=== PATIENT | male | born 1965 | race Hispanic/Latino ===

== ENCOUNTER 2020-04-20 15:57 | Observation (INO) | payer OTHER ==
[2020-04-13 11:22] LABS: Hematocrit 49.8 % (35.5-45.6); Hemoglobin 16.6 gm/dl (11.8-15.2); Mean Corpuscular HGB Conc 33 % (32-34); Mean Corpuscular Volume 83 fl (84-94); Platelet Count 158 K/mm3 (140-440); Red Cell Distribution Width 14.2 % (13.2-15.2)
[2020-04-13 11:47] LABS: Alanine Aminotransferase 15 units/L (7-56); Albumin 4.4 g/dL (3.9-5); BUN/Creatinine Ratio 14; Blood Urea Nitrogen 17 mg/dL (9-20); Calcium 9.4 mg/dL (8.4-10.2); Hemolysis Index 7
--- NOTE | 2020-04-13 14:47 | Anesthesia Consultation ---
Anesthesia Consult and Med Hx Date of service: 04/20/20 - Airway Anesthetic Teeth Evaluation: Dentures (upper and lower) ROM Head & Neck: Adequate Mental/Hyoid Distance: Adequate Mallampati Class: Class III Intubation Access Assessment: Possibly Difficult - Pulmonary Exam CTA: Yes - Cardiac Exam Cardiac Exam: RRR - Pre-Operative Health Status ASA Pre-Surgery Classification: ASA3 Proposed Anesthetic Plan: General Nerve Block: TAP - Pulmonary Hx Smoking: Yes (long hx; quit 2013) Hx Asthma: Yes SOB: Yes (chronic HONG improved since recent weight loss) COPD: Yes Home Oxygen Therapy: Yes (2L prn during the day, 3L nocturnal) Hx Sleep Apnea: Yes (severe SHELIA compliant with CPAP) - Cardiovascular System Hx Hypertension: Yes Hx Heart Attack/AMI: No Hx Percutaneous Transluminal Coronary Angioplasty (PTCA): No Hx Cardia Arrhythmia: No - Central Nervous System CVA: No Hx Back Pain: Yes (NECK PAIN) Hx Psychiatric Problems: Yes (depression) - Gastrointestinal Hx Gastroesophageal Reflux Disease: Yes (symptoms usually at night but occas ionally also when NPO) - Endocrine Hx Renal Disease: No Hx Liver Disease: No (hx HCV s/p treatment) Hx Non-Insulin Dependent Diabetes: Yes (off meds since recent weight loss) Hx Thyroid Disease: No - Hematic Hx Anemia: Yes - Other Systems Hx Substance Use: Yes (hx opioid abuse; sober x6yrs) Hx Obesity: Yes (BMI 33) - Additional Comments Anesthesia Medical History Comments: Pulmonology preop eval on chart reviewed. Per pulmonology, patient has severe restrictive lung disease with reduced diffusion capcity and may be low to intermediate risk for postop pulmonary complications. Disussed with patient the risks of periop pulmonary complication up to and including the need for post op mechanical ventilation given his respiratory morbidity. He verbalized understanding and gave consent for anesthesia.
--- NOTE | 2020-04-20 09:51 | Anesthesia Day of Surgery ---
Anesthesia Day of Surgery - Day of Surgery Patient Examined: Yes Patient H&P Reviewed: Yes Patient is NPO: Yes
[2020-04-20] MEDS: CELECOXIB 200 MG CAP PO NR ×2 (10:00→10:05)
[2020-04-20] MEDS: MIDAZOLAM 2 MG/2 ML INJ IV NR ×2 (10:18→10:23)
--- NOTE | 2020-04-20 15:02 | Short Stay Summary ---
Short Stay Documentation Date of service: 04/20/20 - History Principal diagnosis: incarcerated incisional hernia, L inguinal hernia H&P: obtained from office - Allergies and Medications Current Medications: Allergies No Known Allergies Allergy (Verified 04/13/20 17:41) Home Medications Medication Instructions Recorded Confirmed Last Taken Type B12 Active 1,000 mcg PO DAILY 04/12/20 04/12/20 Unknown History Budesonide-Formoterol 160-4.5 2 puff INHALATION DAILY 04/12/20 04/20/20 04/19/20 09:00 History Cholecalciferol (Vitamin D3) 2,000 units PO DAILY 04/12/20 04/20/20 04/19/20 09:00 History Cyclobenzaprine HCl 10 mg PO BID PRN 04/12/20 04/12/20 Unknown History Famotidine [Acid-Pep] 20 mg PO BID 04/12/20 04/20/20 04/19/20 19:00 History Fish Oil 1 cap PO DAILY 04/12/20 04/20/20 04/19/20 09:00 History Furosemide [Lasix TAB] 40 mg PO DAILY 04/12/20 04/20/20 04/19/20 09:00 History Gabapentin 100 mg PO TID 04/12/20 04/20/20 04/19/20 20:00 History Ipratropium/Albuter (Nf) 90 mcg INHALATION DAILY 04/12/20 04/20/20 04/19/20 09:00 History Losartan 100 mg PO DAILY 04/12/20 04/20/20 04/19/20 09:00 History Magnesium 500 mg PO DAILY 04/12/20 04/20/20 04/19/20 09:00 History Melatonin 30 mg PO HS 04/12/20 04/20/20 04/19/20 20:00 History Meloxicam 15 mg PO DAILY 04/12/20 04/20/20 04/19/20 09:00 History Polyethylene Glycol 3350 1 packet PO DAILY 04/12/20 04/20/20 04/19/20 09:00 History [place] Oil 1,000 mg Softgel 1 cap PO DAILY 04/12/20 04/20/20 04/19/20 09:00 History Tiotropium 5 mcg INHALATION DAILY 04/12/20 04/12/20 Unknown History Tramadol HCl 50 mg PO PRN PRN 04/12/20 04/20/20 04/20/20 07:00 History Albuterol Sulfate [Proventil Hfa] 2 puff IH PRN PRN 04/13/20 04/13/20 Unknown History Active Medications Acetaminophen (Acetaminophen 500 Mg Tab) 1,000 mg PO PREOP EDITH Stop: 04/20/20 21:00 Last Admin: 04/20/20 10:00 Dose: 1,000 mg Documented by: Famotidine (Famotidine 20 Mg/2 Ml Inj) 20 mg IV ONCE EDITH Stop: 04/20/20 21:00 Last Admin: 04/20/20 10:00 Dose: 20 mg Documented by: Fentanyl (Fentanyl 100 Mcg/2 Ml Inj) 100 mcg IV ONCE PRN PRN Reason: sedation for nerve block Stop: 04/20/20 21:00 Last Admin: 04/20/20 10:18 Dose: 100 mcg Documented by: Gabapentin (Gabapentin 300 Mg Cap) 300 mg PO PREOP NR Stop: 04/20/20 21:00 Last Admin: 04/20/20 10:00 Dose: 300 mg Documented by: Hydromorphone HCl (Hydromorphone 1 Mg/1 Ml Inj) 0.25 mg IV Q10MIN PRN PRN Reason: Pain, Moderate (4-6) Stop: 04/20/20 22:00 Hydromorphone HCl (Hydromorphone 1 Mg/1 Ml Inj) 0.5 mg IV Q10MIN PRN PRN Reason: Pain , Severe (7-10) Stop: 04/20/20 22:00 Lactated Ringer's (Lactated Ringers) 1,000 mls @ 100 mls/hr IV DIRECT EDITH Stop: 04/20/20 23:59 Last Admin: 04/20/20 10:00 Dose: 100 mls/hr Documented by: Cefazolin Sodium (Ancef/Sterile Water 2 Gm/20 Ml) 2 gm in 20 mls @ 80 mls/hr IV PREOP NR Stop: 04/20/20 20:00 Magnesium Oxide (Magnesium Oxide 400 Mg Tab) 400 mg PO PREOP EDITH Stop: 04/20/20 21:00 Last Admin: 04/20/20 10:00 Dose: 400 mg Documented by: Midazolam HCl (Midazolam 2 Mg/2 Ml Inj) 2 mg IV PREOP NR Stop: 04/20/20 21:00 Last Admin: 04/20/20 10:23 Dose: 2 mg Documented by: Ondansetron HCl (Ondansetron 4 Mg/2 Ml Inj) 4 mg IV ONCE PRN PRN Reason: Nausea And Vomiting Stop: 04/20/20 16:00 - Brief post op/procedure progress note Date of procedure: 04/20/20 Pre-op diagnosis: incarcerated incisional hernia, left inguinal hernia Post-op diagnosis: same Procedure: Robotic assisted laparoscopic lysis of adhesions, incisional hernia repair with mesh, L inguinal hernia repair with mesh Anesthesia: GETA, other (Tap Block) Findings: 1. A great deal of adhesions from ometum, small bowel, and colon to anterior abdominal wall 2. 2x2.5 cm paraumbilical incisional hernia containing incarcerated fat 3. Small indirect left inguinal hernia containing cord lipoma Surgeon: FRANCESCA GILLIAM Bike Designer: HADYEN LOVE Estimated blood loss: 50-100ml Pathology: none Condition: stable - Hospital course Hospital course: Patient admitted to hospital for observation due to his underlying pulmonary disease. He was observed in the PACU and brought to the floor in stable condition once criteria met. - Disposition Condition at discharge: Good Disposition: DC-01 TO HOME OR SELFCARE Short Stay Discharge Plan Follow up with: [facility] [Primary Care Provider] - 7 Days
--- NOTE | 2020-04-20 15:03 | Post Operative Note ---
Pre-op diagnosis: incarcerated incisional hernia, left inguinal hernia Post-op diagnosis: same Findings: 1. A great deal of adhesions from ometum, small bowel, and colon to anterior abdominal wall 2. 2x2.5 cm paraumbilical incisional hernia containing incarcerated fat 3. Small indirect left inguinal hernia containing cord lipoma Procedure: robotic assisted laparoscopic lysis of adhesions, left inguinal hernia repair with mesh, incisional hernia repair with mesh Anesthesia: GETA, other (TAP block) Surgeon: FRANCESCA GILLIAM Tennis Net Maker: HAYDEN LOVE Estimated blood loss: 50-100ml Pathology: none Condition: stable Disposition: PACU
[~2020-04-20 15:57] MED LIST: ACETAMINOPHEN 325 MG TAB PO PRN; ACETAMINOPHEN 500 MG TAB PO SCH; BUPIVACAINE-EPINEPHRINE/PF 0.25%-1:200,000 (30 ML) VIAL INFILTRATI ONE; CELECOXIB 200 MG CAP PO NR; FAMOTIDINE 20 MG/2 ML INJ IV SCH; GABAPENTIN 300 MG CAP PO NR; HYDROmorphone 1 MG/1 ML INJ IV PRN; HYDROmorphone 1 MG/1 ML INJ ONE; KETAMINE/STERILE WATER 50 MG/ML SYRINGE ONE; LACTATED RINGERS 1,000 ML IV SCH; LACTATED RINGERS 1,000 ML ONE; LIDOCAINE MPF (2%) 20 MG/1 ML VIAL 5 ML ONE; MAGNESIUM OXIDE 400 MG TAB PO SCH; NALOXONE 0.4 MG/1 ML INJ IV PRN; ONDANSETRON 4 MG/2 ML INJ IV PRN; ROCURONIUM 50 MG/5 ML INJ IV ONE; SUGAMMADEX SODIUM 200 MG/2 ML VIAL IV ONE; WATER FOR IRRIG STERILE 1,500 ML BOTTLE IR ONE; ceFAZolin/Water 2 GM/20 ML 2 GM/20 ML SYRINGE IV NR; fentaNYL 100 MCG/2 ML INJ IV PRN; oxyCODONE /ACETAMINOPHEN 5-325MG TAB PO PRN; propofoL 200 MG/20 ML VIAL IV ONE
--- NOTE | 2020-04-20 16:12 | Post Anesthesia Evaluation ---
- Post Anesthesia Evaluation Patient Participated: Yes Airway Patent: Yes Stable Respiratory Function: Yes Nausea/Vomiting: No Temp > 96.8F: Yes Pain Manageable: Yes Adequeate Hydration: Yes Anesthesia Complications: No Block Receding Appropriately: Yes Patient on Ventilator: No
--- NOTE | 2020-04-20 16:19 | Operative Report ---
Operative Report Operative Report: Date: 04/20/20 15:02 Pre-op diagnosis: incarcerated incisional hernia, left inguinal hernia Post-op diagnosis: same Findings: 1. A great deal of adhesions from ometum, small bowel, and colon to anterior abdominal wall 2. 2x2.5 cm paraumbilical incisional hernia containing incarcerated fat 3. Small indirect left inguinal hernia containing cord lipoma Procedure: robotic assisted laparoscopic lysis of adhesions, left inguinal hernia repair with mesh, incisional hernia repair with mesh Anesthesia: GETA, other (TAP block) Surgeon: FRANCESCA GILLIAM Locker Operator: HAYDEN LOVE Estimated blood loss: 50-100ml Urine output: 200cc Pathology: none Condition: stable Disposition: PACU HPI and indication: 54 yo M with hx of exalp, Mckeon procedure and subsequent reversal in the 1980s presented to surgery clinic for evaluation of hernia. Patient was being worked up at the CT for incisional hernia which was painful with incarcerated fat. CT scan A/P showed 2.1 cm paraumbilical ventral hernia and small fat containing L inguinal hernia. Physical exam revealed the same. Pt had lost >40 lbs in preparation for surgery. He was seen by pulmonology and preop risk assessment performed. It was recommended that the hernias be repaired. All risk, benefits, alternatives surgery discussed with patient questions answered. It was recommended that the hernia be repaired robotically. Alternatives such as open versus laparoscopic repair were also discussed. The patient was in agreement and consent obtained. Due to patient's pulmonary history, it was also recommended that patient be admitted post op for observation. Procedure in detail: The patient was identified in the preoperative area and taken back to the operating room and placed on the operating room table in supine position. After anesthesia was induced, both arms were tucked with all bony prominences padded appropriately. Blackwell catheter was placed sterilely by the circulating nurse. The abdomen was then prepped and draped in usual sterile fashion and a timeout was performed. The patient had a TAP block performed by anesthesia preoperatively. A jessica incision was made in the left upper quadrant at Alcala's point through which a Veress needle was inserted. The Veress needle position was confirmed using the saline drop test and the abdomen insufflated to 15 mmHg without incident. A 5 mm incision was made in the right upper quadrant through which a 5 mm Optiview trocar was placed under direct visualization. The abdomen was inspected and there was no underlying injury to any of the abdominal structures. There was a large amount of adhesions to the abdominal wall obscuring most of the abdominal wall in the midline, left hemiabdomen, and pelvis. The abdominal wall in the right hemiabdomen was without adhesions and an additional 8 mm RLQ robotic trocal and 12mm right lateral balloon trocar were placed under direct visualization. Extensive lysis of adhesions was performed laparoscopically using the ligasure. This portion of the lysis of adhesions took approximately 45 minutes. Adhesions from the omentum and bowel were dissected very meticulously until the veress needle was identified. The tip was seen abutting fat and no injury to the bowel was seen. The veress needle was removed. The 5 mm right upper quadrant trocar was replaced with an 8 mm robotic trocar under direct visualization. The robot was then docked to further facilitate lysis of adhesions . A fenestrated bipolar was placed in arm #2 and a monopolar scissor in arm #1. The surgeon was then transferred to the console. I continued dissecting these adhesions in order to get better visualization of the ventral hernia. Dissection was carried out very carefully using a combination of blunt dissection and electrocautery. During the dissection the hernia became more apparent. There was a moderate amount of incarcerated fat in the hernia defect which was carefully reduced. I continued the lysis of adhesions to the left hemiabdomen in order to facilitate placement of mesh and to access the left inguinal hernia. This took another 40 minutes. The hernia defect measured 2x2.5cm. No other defects were seen along the midline incision. At this point it was decided to first fix the left inguinal hernia. The robot was undocked and an additional 12mm balloon trocar was placed in the upper midline and 8 mm robotic trocar in the left upper quadrant under direct visualization. First, I created a preperitoneal flap. The peritoneum was scored approximately 5 to 6 cm from the hernia defect. The peritoneum was then incised from the midline to the ASIS. The preperitoneal flap was then developed in an avascular plane. I first defined the medial margin by dissecting to the pubic tubercle. The pubic tubercle was cleared of overlying fatty tissue using blunt dissection. I then created the lateral margin in a similar fashion. Great care was taken to avoid injury to any nerves. I then started to reduce the hernia sac. The hernia sac was grasped and retracted laterally and cremasteric muscles were divided in a very careful fashion. During the dissection, the cord structures were identified and protected. The cord structures and vas deferens were visualized throughout the entire dissection. There was a cord lipoma associated with the hernia which was reduced. Once the hernia sac was completely excised, the peritoneal flap was checked for hemostasis. Any additional cremasteric fibers that were were tenting up the peritoneum were divided. Hemostasis was carefully ensured. A medium sized Bard 3D max left-sided mesh was used to repair the defect. This was positioned in the preperitoneal flap in the usual fashion. The medial aspect using interrupted 2-0 Vicryl stitch. The lateral aspect was sutured to the anterior abdominal wall using a 2-0 Vicryl interrupted stitch. Mesh was to lay flat and cover the defect adequately. The abdominal pressure was decreased to 8 mmHg and the peritoneum was then reapproximated using 3-0 VLoc running stitch. Defect in the peritoneum was repaired using a running 3-0 VLoc stitch. The entirety of the mesh was covered by peritoneum and laid flat in the preperitoneal space. The robot was then undocked and redocked to repair the incisional hernia. An 11.[address] composite mesh was chosen to repair the hernia. The hernia defect was closed using an 0 VLoc running stitch. The mesh was positioned in the center of the defect. The uncoated side was placed against the abdominal wall. The mesh was sutured into place circumferentially using a running 2 0 V loc stitch. The mesh was seen to lay flat against the abdominal wall. All sharp material was removed from the abdomen under direct visualization. The robot was then undocked and the surgeon scrubbed back in. The remainder of the case was performed laparoscopically. 2 raytecs which were placed in the abdomen at the beginning of the case were removed. The ometum was irrigated and hemostasis carefully ensured. Raudel powder was sprayed over the omentum to further help with hemostasis. The fascia of the 12mm ports and 8mm RLQ port was closed with interrupted 0-vicryl stitch es. The remaining ports were removed under direct visualization and the abdomen desufflated. The skin incisions were closed with 4-0 Monocryl subcuticular stitches and skin glue. A 4 x 4 gauze was balled up and placed at the umbilicus and secured with a Tegaderm. At the end of the case, all sponge, instrument, sharp counts were correct 2. An abdominal binder was applied to the patient. Blackwell catheter was removed. The patient was awoken from anesthesia, extubated and taken to PACU in stable condition.
[2020-04-20] MEDS: D5W/0.45% NACL 1,000 ML IV SCH (17:42)
[2020-04-20] MEDS: HYDROmorphone 1 MG/1 ML INJ IV PRN ×2 (17:45→22:07)
[2020-04-20] MEDS ORDERED: BUDESONIDE 0.25 MG/2 ML NEBU IH SCH (20:00)
[2020-04-20] MEDS ORDERED: IPRATROPIUM/ALBUTEROL SULFATE 3 ML AMPUL.NEB IH SCH (20:00)
[2020-04-20] MEDS ORDERED: MELATONIN 5 MG TAB PO SCH (22:00)
[2020-04-20] MEDS: CELECOXIB 200 MG CAP PO SCH (22:09)
[2020-04-20] MEDS: GABAPENTIN 300 MG CAP PO SCH (22:09)
[2020-04-20] MEDS: HEPARIN 5,000 UNIT/1 ML VIAL SUB-Q SCH (22:10)
[2020-04-21] MEDS: HYDROmorphone 1 MG/1 ML INJ IV PRN ×3 (02:16→11:54)
[2020-04-21] MEDS: D5W/0.45% NACL 1,000 ML IV SCH (05:37)
[2020-04-21] MEDS: HEPARIN 5,000 UNIT/1 ML VIAL SUB-Q SCH (05:39)
[2020-04-21 06:18] LABS: Basophils % (Auto) 0.5 % (0.0-1.8); Hematocrit 42.2 % (35.5-45.6); Hemoglobin 14.1 gm/dl (11.8-15.2); Lymphocytes # (Auto) 1.1 K/mm3 (1.2-5.4); Lymphocytes % (Auto) 10.4 % (13.4-35.0); Mean Corpuscular HGB Conc 34 % (32-34); Mean Corpuscular Volume 83 fl (84-94); Monocytes # (Auto) 0.6 K/mm3 (0.0-0.8); Monocytes % (Auto) 5.8 % (0.0-7.3); Platelet Count 161 K/mm3 (140-440); Red Blood Count 5.07 M/mm3 (3.65-5.03); Red Cell Distribution Width 14.2 % (13.2-15.2)
[2020-04-21 06:33] LABS: BUN/Creatinine Ratio 17; Blood Urea Nitrogen 15 mg/dL (9-20); Calcium 8.5 mg/dL (8.4-10.2); Hemolysis Index 5
[2020-04-21] MEDS ORDERED: TIOTROPIUM 18 MCG CAP INHALATION IH SCH (09:00)
[2020-04-21] MEDS ORDERED: LOSARTAN 50 MG TAB PO SCH (10:00)
[2020-04-21] MEDS ORDERED: FUROSEMIDE 40 MG TAB PO SCH (10:00)
[2020-04-21] MEDS ORDERED: FAMOTIDINE 20 MG TAB PO SCH (10:00)
[2020-04-21 11:49] VITALS: BP 142/74
[2020-04-21] MEDS: CELECOXIB 200 MG CAP PO SCH (11:54)
[2020-04-21] MEDS: GABAPENTIN 300 MG CAP PO SCH (11:55)
--- NOTE | 2020-04-21 12:35 | Discharge Summary ---
Providers - Providers Date of Admission: 04/20/20 15:58 Date of discharge: 04/21/20 Attending physician: FRANCESCA GILLIAM DO Primary care physician: [facility] Hospitalization Reason for admission: 04/20/20 Condition: Good Procedures: robotic assisted EVETTE, repair incisional and L inguinal hernia with mesh Hospital course: 54 yo M who underwent elective robotic assisted lap lysis of adhesions, repair of incarcerated incisional hernia with mesh and left inguinal hernia repair with mesh on 04/20/20. Patient was admitted for observation due to his underlying severe pulmonary disease. His post op course was uncomplicated. He was weaned off oxygen and was reaching 2000cc on IS. Pain well controlled. He was ambulati ng on his own and urinating. No f/c. Tolerating a diet. Disposition: - TO HOME OR SELFCARE Time spent for discharge: 30 mins Core Measure Documentation - Palliative Care Palliative Care/ Comfort Measures: Not Applicable - Core Measures Any of the following diagnoses?: none Exam - Physical Exam Narrative exam: Gen: AAOx3. NAD CV: s1, S2+ Resp: even and unlabored Abd: soft, NT, ND. incisions c/d/i with mild ecchymosis. Umbilical dressing c/d/i. Abdominal binder in place Ext: no c/c/e - Constitutional Vitals: Temp Pulse Resp BP Pulse Ox 98.1 F 88 18 142/74 97 04/21/20 11:24 04/21/20 11:24 04/21/20 11:24 04/21/20 11:24 04/21/20 12:18 Plan Activity: other (no heavy lifting more than 15 lbs for next 6 weeks.) Diet: regular Wound: open to air, per your surgeon's advice Additional Instructions: Patient discharge instructions. You have undergone surgery to fix an abdominal wall and left groin hernia. You will feel sore for the next few days. Bruising around your incision could be normal. Diet: ?Regular diet foods that are soft and easy to digest. Try to avoid fatty or fried foods right away. Make sure to drink plenty of water and stay hydrated. Activity: You are encouraged to walk and may go up and down the steps. No heavy lifting of more than 15 lbs for the next [address] if you are taking prescription, narcotic pain medications. Wear abdominal bind er at all times except during shower and may remove while sleeping. Showering: You may shower. Pat your incision dry and do not scrub or rub. Do not get into a hot tub, pool, or bathtub where your incisions will be under water. Wound care instructions: Keep incisions clean and dry. There is skin glue on your incisions which will fall off on its own. Pain medications: You are encouraged to use over the counter pain medications like Tylenol or Ibuprofen as directed on the bottle for pain control. If your pain is not controlled with these medications, you have been given a prescription for Percocet medications. Please use as directed and if you do not finish the prescription pain medications, please return to your pharmacy. Continue taking your Gabapentin and Meloxicam as prescribed. Reasons to call Surgeons office: If you have fevers >100.4. If you are having increasing abdominal pain or vomiting. If you have pain that is not controlled with prescription pain medications. If you have drainage if pus or redness around the incisions. When to come back to see your Surgeon: Please call the office ([phone]) to make an appointment to see the surgeon in 2 weeks. Call if you have any questions. [facility]. [facility] Ground floor Follow up with: [facility] [Primary Care Provider] - 7 Days FRANCESCA GILLIAM DO [Staff Physician] - 10 Days Prescriptions: oxyCODONE /ACETAMINOPHEN [Percocet 5/325 mg] 2 tab PO Q6HR PRN #40 tablet PRN Reason: Pain, Moderate (4-6)
== END 2020-04-21 16:22 | disposition home or self-care (01) ==
LOC: OR 15:57 → 3B-SURG 15:58
PROVIDERS: ADMIT Surgery; ATTEND Surgery
DX: Z01.812 Encounter for preprocedural laboratory examination (principal); K43.2 Incisional hernia without obstruction or gangrene; Z20.828 Contact with and (suspected) exposure to other viral communicable diseases; K40.90 Unilateral inguinal hernia, without obstruction or gangrene, not specified as recurrent; I10 Essential (primary) hypertension; K21.9 Gastro-esophageal reflux disease without esophagitis; E11.9 Type 2 diabetes mellitus without complications; R06.00 Dyspnea, unspecified; G47.30 Sleep apnea, unspecified; F41.9 Anxiety disorder, unspecified; F32.9 Major depressive disorder, single episode, unspecified; R53.82 Chronic fatigue, unspecified; Z86.19 Personal history of other infectious and parasitic diseases; Z98.890 Other specified postprocedural states; Z79.899 Other long term (current) drug therapy
CPT/HCPCS: 36415; 49650; 49655; 64450; 80048; 80053; 82962; 85025; 85027; 96361; 96372; 96374; 96375; 96376; C1781; G0378; J0690; J1170; J1644; J2250; J2704; J3010; J3490; J7120; S2900; U0003

== ENCOUNTER 2020-05-12 12:33 | Outpatient (CLI) | payer OTHER ==
--- NOTE | 2020-05-12 14:23 | Ultrasound Report ---
LIMITED ABDOMINAL ULTRASOUND HISTORY: Right lower quadrant pain. FINDINGS: Ultrasound performed of the abdominal wall at the right lower quadrant site of the patient' s pain. A small complex area is seen measuring 1.1 x 0.6 x 1.1. This is at the site of previous surge ry. Findings may represent postsurgical scarring/hematoma. No drainable fluid collection is present. One CM medial and 2 CM inferior to the incision site is an area of possible nonincarcerated hernia. Signer Name: Sukumar Marcelino MD Signed: 05/12/2020 2:18 PM Workstation Name: [id number]
== END 2020-05-12 12:34 | disposition home or self-care (01) ==
LOC: US 12:33 → EDSTATUS 12:39
PROVIDERS: ATTEND Surgery
DX: K43.2 Incisional hernia without obstruction or gangrene (principal)
CPT/HCPCS: 76705

== ENCOUNTER 2020-05-14 10:25 | Day surgery (SDC) | payer OTHER ==
[~2020-05-14 10:25] MED LIST changes: -ACETAMINOPHEN 325 MG TAB PO PRN; +ALBUTEROL 2.5 MG/3 ML NEBU IH PRN; -BUPIVACAINE-EPINEPHRINE/PF 0.25%-1:200,000 (30 ML) VIAL INFILTRATI ONE; -FAMOTIDINE 20 MG/2 ML INJ IV SCH; -HYDROmorphone 1 MG/1 ML INJ IV PRN; -HYDROmorphone 1 MG/1 ML INJ ONE; -KETAMINE/STERILE WATER 50 MG/ML SYRINGE ONE; -LACTATED RINGERS 1,000 ML ONE; -LIDOCAINE MPF (2%) 20 MG/1 ML VIAL 5 ML ONE; -MAGNESIUM OXIDE 400 MG TAB PO SCH; -NALOXONE 0.4 MG/1 ML INJ IV PRN; -ONDANSETRON 4 MG/2 ML INJ IV PRN; -ROCURONIUM 50 MG/5 ML INJ IV ONE; -SUGAMMADEX SODIUM 200 MG/2 ML VIAL IV ONE; -WATER FOR IRRIG STERILE 1,500 ML BOTTLE IR ONE; -ceFAZolin/Water 2 GM/20 ML 2 GM/20 ML SYRINGE IV NR; -fentaNYL 100 MCG/2 ML INJ IV PRN; -oxyCODONE /ACETAMINOPHEN 5-325MG TAB PO PRN; -propofoL 200 MG/20 ML VIAL IV ONE
--- NOTE | 2020-05-14 10:59 | Anesthesia Consultation ---
Anesthesia Consult and Med Hx Date of service: 05/14/20 - Airway Anesthetic Teeth Evaluation: Edentulous ROM Head & Neck: Adequate Mental/Hyoid Distance: Adequate Mallampati Class: Class III Intubation Access Assessment: Probably Good (previous easy intubation with MAC 4) - Pulmonary Exam CTA: Yes - Cardiac Exam Cardiac Exam: RRR - Pre-Operative Health Status ASA Pre-Surgery Classification: ASA3 Proposed Anesthetic Plan: General - Pulmonary Hx Smoking: Yes (long hx of heavy smoking; quit 2013) Hx Asthma: Yes SOB: Yes (chronic HONG improved since recent weight loss) COPD: Yes Home Oxygen Therapy: Yes (3L during the day, 2L qHS) Hx Sleep Apnea: Yes (severe SHELIA compliant with CPAP) - Cardiovascular System Hx Hypertension: Yes (took losartan this morning) Hx Heart Attack/AMI: No Hx Cardia Arrhythmia: No Hx Heart Murmur: No - Central Nervous System CVA: No Hx Back Pain: Yes (NECK PAIN , BACK PAIN WITH RT LEG PAIN,NUMBNESS WEAKNESS) - Gastrointestinal Hx Gastroesophageal Reflux Disease: Yes - Endocrine Hx Renal Disease: No Hx Liver Disease: No (hx HCV s/p treatment 2014) Hx Non-Insulin Dependent Diabetes: Yes (off meds since recent weight loss) Hx Thyroid Disease: No - Hematic Hx Anemia: Yes Hx Sickle Cell Disease: No - Other Systems Hx Alcohol Use: Yes (hx EtOH abuse; sober 6yrs) Hx Substance Use: Yes (hx opioid abuse; sober 6yrs) Hx Obesity: Yes (BMI 32) - Additional Comments Anesthesia Medical History Comments: No hx anesthetic complications. Last surgery 03/2020 under GETA, patient was extubated in OR immediately postop and had no respiratory issues. Discussed again with patient the risk of periop resp complications for this procedure. Verbalized understanding and gave consent for anesthesia.
[2020-05-14] MEDS ORDERED: ONDANSETRON 4 MG/2 ML INJ IV PRN (11:00)
[2020-05-14] MEDS ORDERED: fentaNYL 100 MCG/2 ML INJ IV PRN (11:00)
[2020-05-14] MEDS ORDERED: ceFAZolin/STERILE WATER 2 GM/20 ML SYRINGE IV NR (11:00)
--- NOTE | 2020-05-14 11:00 | Anesthesia Day of Surgery ---
Anesthesia Day of Surgery - Day of Surgery Patient Examined: Yes Patient H&P Reviewed: Yes Patient is NPO: Yes
[2020-05-14] MEDS ORDERED: HYDROmorphone 1 MG/1 ML INJ ONE (13:05)
[2020-05-14] MEDS ORDERED: propofoL 200 MG/20 ML VIAL IV ONE (13:05)
[2020-05-14] MEDS ORDERED: BUPIVACAINE/PF (0.25%) 2.5 MG/ML 30 ML VIAL INFILTRATI ONE ×2 (13:06→13:32)
[2020-05-14] MEDS ORDERED: LIDOCAINE (1%) 10 MG/1 ML VIAL 20 ML MDV ONE (13:06)
[2020-05-14] MEDS ORDERED: ROCURONIUM 50 MG/5 ML INJ IV ONE (13:07)
[2020-05-14] MEDS ORDERED: LIDOCAINE MPF (2%) 20 MG/1 ML VIAL 5 ML ONE (13:07)
[2020-05-14] MEDS ORDERED: SODIUM CHLORIDE 0.9% IRR 1,000 ML BOTTLE IR ONE ×2 (13:30→13:34)
[2020-05-14] MEDS ORDERED: LIDOCAINE (1%) 10 MG/1 ML VIAL 20 ML MDV INFILTRATI ONE (13:33)
[2020-05-14] MEDS ORDERED: SUGAMMADEX SODIUM 200 MG/2 ML VIAL IV ONE (13:53)
[2020-05-14] MEDS ORDERED: ONDANSETRON 4 MG/2 ML INJ ONE (13:58)
--- NOTE | 2020-05-14 14:02 | Short Stay Summary ---
Short Stay Documentation Date of service: 05/14/20 - History Principal diagnosis: right lower quadrant pain, possible port site hernia H&P: obtained from office - Allergies and Medications Current Medications: Allergies No Known Allergies Allergy (Verified 04/13/20 17:41) Home Medications Medication Instructions Recorded Confirmed Last Taken Type B12 Active 1,000 mcg PO DAILY 04/12/20 05/14/20 05/13/20 09:00 History Budesonide-Formoterol 160-4.5 2 puff INHALATION DAILY 04/12/20 05/14/20 05/13/20 09:00 History Cholecalciferol (Vitamin D3) 2,000 units PO DAILY 04/12/20 05/14/20 05/13/20 09:00 History Cyclobenzaprine HCl 10 mg PO BID PRN 04/12/20 05/12/20 Unknown History Famotidine [Acid-Pep] 20 mg PO BID 04/12/20 05/14/20 05/13/20 17:00 History Fish Oil 1 cap PO DAILY 04/12/20 05/14/20 05/13/20 09:00 History Furosemide [Lasix TAB] 40 mg PO DAILY 04/12/20 05/14/20 05/13/20 09:00 History Gabapentin 100 mg PO TID 04/12/20 05/14/20 05/13/20 20:00 History Ipratropium/Albuter (Nf) 90 mcg INHALATION DAILY 04/12/20 05/14/20 05/13/20 09:00 History Losartan 100 mg PO DAILY 04/12/20 05/14/20 05/14/20 05:30 History Magnesium 500 mg PO DAILY 04/12/20 05/14/20 05/13/20 09:00 History Melatonin 30 mg PO HS 04/12/20 05/14/20 05/13/20 20:00 History Meloxicam 15 mg PO DAILY 04/12/20 05/14/20 05/13/20 09:00 History Polyethylene Glycol 3350 1 packet PO DAILY 04/12/20 05/14/20 05/13/20 09:00 History [place]undy Oil 1,000 mg Softgel 1 cap PO DAILY 04/12/20 05/14/20 05/13/20 09:00 History Tiotropium 2 puff INHALATION DAILY 04/12/20 05/12/20 Unknown History Tramadol HCl 50 mg PO PRN PRN 04/12/20 05/14/20 05/14/20 05:30 History Albuterol Sulfate [Proventil Hfa] 2 puff IH PRN PRN 04/13/20 05/12/20 Unknown History oxyCODONE /ACETAMINOPHEN [Percocet 2 tab PO Q6HR PRN #40 tablet 04/21/20 05/12/20 Unknown Rx 5/325 mg] Active Medications Acetaminophen (Acetaminophen 500 Mg Tab) 1,000 mg PO PREOP EDITH Stop: 05/14/20 21:00 Last Admin: 05/14/20 11:05 Dose: 1,000 mg Documented by: Albuterol (Albuterol 2.5 Mg/3 Ml Nebu) 2.5 mg IH PREOP PRN PRN Reason: Wheezing Stop: 05/14/20 21:00 Last Admin: 05/14/20 11:15 Dose: 2.5 mg Documented by: Cefazolin Sodium (Cefazolin/Sterile Water 2 Gm/20 Ml Syringe) 2 gm IV PREOP NR Stop: 05/14/20 23:00 Celecoxib (Celecoxib 200 Mg Cap) 200 mg PO PREOP NR Stop: 05/14/20 21:00 Last Admin: 05/14/20 11:05 Dose: 200 mg Documented by: Fentanyl (Fentanyl 100 Mcg/2 Ml Inj) 50 mcg IV Q5MIN PRN PRN Reason: Pain , Severe (7-10) Stop: 05/14/20 23:59 Gabapentin (Gabapentin 300 Mg Cap) 300 mg PO PREOP NR Stop: 05/14/20 21:00 Last Admin: 05/14/20 11:05 Dose: 300 mg Documented by: Lactated Ringer's (Lactated Ringers) 1,000 mls @ 50 mls/hr IV DIRECT EDITH Stop: 05/14/20 23:59 Last Admin: 05/14/20 11:20 Dose: 50 mls/hr Documented by: Ondansetron HCl (Ondansetron 4 Mg/2 Ml Inj) 4 mg IV ONCE PRN PRN Reason: Nausea And Vomiting - Brief post op/procedure progress note Date of procedure: 05/14/20 Pre-op diagnosis: right lower quadrant pain, possible port site hernia Post-op diagnosis: other (suture granuloma of right lower quadrant port site) Procedure: exploration of right lower quadrant incision and excision of suture granuloma Anesthesia: GETA, local Findings: 2.5 cm suture granuloma at RLQ port site, no hernia Surgeon: FRANCESCA GILLIAM Estimated blood loss: minimal Pathology: list (granuloma right lower quadrant port site) Specimen disposition: to lab Condition: stable - Hospital course Hospital course: Pt observed in PACU and discharged to home in stable condition. - Disposition Condition at discharge: Good Disposition: DC-01 TO HOME OR SELFCARE Short Stay Discharge Plan Activity: other (No heavy lifting for 4 weeks) Diet: low fat Wound: open to air (may shower tomorrow), other (wear abdominal binder at all times except during sleep and shower) Follow up with: [facility] [Primary Care Provider] - 7 Days FRANCESCA GILLIAM DO [Staff Physician] - 14 Days Prescriptions: Tramadol HCl 50 mg PO Q12H PRN #30 PRN Reason: Pain, Moderate (4-6)
--- NOTE | 2020-05-14 14:59 | Operative Report ---
Operative Report Operative Report: Date of procedure: 05/14/20 Pre-op diagnosis: right lower quadrant pain, possible port site hernia Post-op diagnosis: other (suture granuloma of right lower quadrant port site) Procedure: exploration of right lower quadrant incision and excision of suture granuloma Anesthesia: GETA, local Findings: 2.5 cm suture granuloma at RLQ port site, no hernia Surgeon: FRANCESCA GILLIAM Estimated blood loss: minimal Pathology: list (granuloma right lower quadrant port site) Specimen disposition: to lab Condition: stable Hospital course: Pt observed in PACU and discharged to home in stable condition. HPI and indication: Patient is a 54-year-old male who underwent robotic assisted laparoscopic lysis of adhesions and incisional hernia repair, left inguinal hernia repair with mesh on April 20, 2020. The patient did well after surgery however a few days ago experienced an episode of gastroenteritis and had several episodes of emesis. He then felt pain at the site of his right lower quadrant port and felt he may have a hernia. He was sent for an ultrasound of the soft tissues which showed a small complex area seen measuring 1.1 x 0.6 x 1.1 at the site of the previous surgery along with an area 1 cm medial and 2 cm inferior to the incision site with possible nonincarcerated hernia. On physical exam there was point tenderness in the area and a soft mobile mass and subcutaneous tissue which was not reducible. It was recommended that the patient undergo exploration of the area to rule out hernia. All risk, benefits, alternatives to surgery were discussed with the patient questions answered. Co nsent was obtained. Procedure in detail: Patient was identified in the preoperative area, taken back to the operating room and placed on the operating table in supine position. After anesthesia was induced the abdomen was prepped and draped in usual sterile fashion timeout performed. Local anesthetic was infiltrated to skin at the intended incision site at the right lower quadrant surgical scar. An incision was made in the right lower quadrant over the area of the old surgical scar but slightly larger. Dissection was carried down through skin and subcutaneous tissue using electrocautery until a lobulated mass was identified. This was circumferentially dissected free from the surrounding tissue using a hemostat and electrocautery. The mass appeared to be a granuloma just superficial to the fascia. This was completely excised and removed from the wound. It measured approximately 2.5 cm. The fascia was very carefully evaluated and was intact. There is no hernia identified. The subcutaneous tissue was then irrigated and hemostasis very carefully ensured. The deep dermal layer was closed using interrupted 3-0 Vicryl suture. The skin was approximated using 4-0 Monocryl subcuticular running stitch and skin glue. At the end of the case all sponge, instrument, sharp counts were correct x2. Patient was awoken from anesthesia extubated taken to PACU in stable condition.
[2020-05-14 15:30] VITALS: BP 122/77
--- NOTE | 2020-05-14 15:36 | Post Anesthesia Evaluation ---
- Post Anesthesia Evaluation Patient Participated: Yes Airway Patent: Yes Stable Respiratory Function: Yes Nausea/Vomiting: No Temp > 96.8F: Yes Pain Manageable: Yes Adequeate Hydration: Yes Anesthesia Complications: No
== END 2020-05-14 15:25 | disposition home or self-care (01) ==
LOC: OR 10:25
PROVIDERS: ATTEND Surgery
DX: R10.31 Right lower quadrant pain (principal); K66.8 Other specified disorders of peritoneum; J44.9 Chronic obstructive pulmonary disease, unspecified; G62.9 Polyneuropathy, unspecified; I10 Essential (primary) hypertension; G47.30 Sleep apnea, unspecified; K21.9 Gastro-esophageal reflux disease without esophagitis; E11.9 Type 2 diabetes mellitus without complications; F32.9 Major depressive disorder, single episode, unspecified; Z72.89 Other problems related to lifestyle; Z79.899 Other long term (current) drug therapy; Z87.891 Personal history of nicotine dependence; Z98.49 Cataract extraction status, unspecified eye; Z98.890 Other specified postprocedural states
CPT/HCPCS: 10121; 82962; 88305; J0690; J1170; J2405; J2704; J7120